=== PATIENT | female | born 1965 | race Hispanic/Latino ===

== ENCOUNTER 2021-05-16 10:17 | Outpatient (CLI) | payer OTHER, SELFPAY ==
--- NOTE | ~2021-05-16 | MM_ITS ---
EXAMINATION: MM screening john BI w [facility] HISTORY: Screening TECHNIQUE: Craniocaudal and mediolateral oblique 3-D tomosynthesis images were obtained and synthetic 2-D images were generated. CAD analysis was submitted and interpreted. COMPARISON: Comparison to multiple prior studies sequentially, with oldest reviewed study dated 01/2013. BREAST PARENCHYMAL COMPOSITION: The breasts are almost entirely fatty. FINDINGS: There is no evidence of suspicious mass, calcification, or architectural distortion to sugg est malignancy in either breast. There has been no suspicious interval change. IMPRESSION: 1. No mammographic evidence of malignancy. 2. Recommend routine screening mammography in one year. BI-RADS Category 1: Negative Reviewed, dictated and finalized at location A.
== END 2021-05-16 10:18 | disposition home or self-care (01) ==
LOC: ANHIMG 10:22
PROVIDERS: PCP Physician Assistant; Visit Provider Physician Assistant
DX: Z12.31 Encounter for screening mammogram for malignant neoplasm of breast (principal)
CPT/HCPCS: 77063; 77067

== ENCOUNTER 2022-05-31 09:18 | Outpatient (CLI) | payer MEDICAID, SELFPAY ==
--- NOTE | ~2022-05-31 | XR_ITS ---
EXAMINATION: XR chest 2V 05/31/2022 09:47 INDICATION: Angina pectoris PROCEDURE: 2 view chest COMPARISON: No prior studies for comparison. FINDINGS: The lungs are clear. The cardiomediastinal silhouette is within normal limits. There are no pleural effusions. There is no pneumothorax suspected. IMPRESSION: 1: NO ACUTE CARDIOPULMONARY DISEASE. Reviewed, dictated and finalized at location A.
== END 2022-05-31 09:19 | disposition home or self-care (01) ==
LOC: ANHIMG 09:26
PROVIDERS: PCP Physician Assistant; Visit Provider Physician Assistant
DX: I20.9 Angina pectoris, unspecified (principal)
CPT/HCPCS: 71046

== ENCOUNTER 2022-10-04 10:15 | Outpatient (CLI) | payer MEDICAID, SELFPAY ==
--- NOTE | ~2022-10-04 | MM_ITS ---
EXAMINATION: MM screening john BI w [facility] HISTORY: Screening mammogram TECHNIQUE: Craniocaudal and mediolateral oblique 3-D tomosynthesis images were obtained and synthetic 2-D images were generated. CAD analysis was submitted and interpreted. COMPARISON: , 01/15/2019, 02/21/2017 bilateral screening mammogram examinations BREAST PARENCHYMAL COMPOSITION: The breasts are almost entirely fatty. FINDINGS: There is no evidence of suspicious mass, calcification, or architectural distortion to sugg est malignancy in either breast. There has been no suspicious interval change. IMPRESSION: 1. No mammographic evidence of malignancy. 2. Recommend routine screening mammography in one year. BI-RADS Category 1: Negative Reviewed, dictated and finalized at location A. RAL OPERATOR
== END 2022-10-04 10:16 | disposition home or self-care (01) ==
LOC: ANHIMG 10:19
PROVIDERS: PCP Physician Assistant; Visit Provider Physician Assistant
DX: Z12.31 Encounter for screening mammogram for malignant neoplasm of breast (principal)
CPT/HCPCS: 77063; 77067

== ENCOUNTER 2024-02-25 23:41 | Emergency (ER) | payer OTHER, SELFPAY ==
--- NOTE | ~2024-02-25 | XR_ITS ---
Portable chest x-ray Comparison: 05/31/2022 Clinical History: Syncope Findings: Lungs are clear, without focal consolidation or pleural effusion. Cardiomediastinal silho uette is stable. Bones and soft tissues are unremarkable. Impression: Clear lungs. Reviewed, dictated and finalized at location . Impression: Clear lungs.
--- NOTE | ~2024-02-25 | CT_ITS ---
Clinical Indication: Syncope, hypotension CT Scan of the Chest, Abdomen, and Pelvis with Contrast: Technique: Contiguous sections were acquired throughout the chest, abdomen, and pelvis after intraven ous administration of 100 cc of Omnipaque 350. Dose reduction technique was used on this scan by farida salas automated exposure control and iterative reconstruction technique. The dose-length product (DL P) was 1150.54 mGy-cm. Findings: There is no evidence of any significant mediastinal, hilar or axillary lymphadenopathy. The mediastin al soft tissues appear normal. No aortic aneurysm or dissection seen. No central pulmonary embolus se en. Small hiatal hernia noted. There is no evidence of pleural or pericardial effusion. The lungs are clear. No pulmonary nodules or infiltrates are noted. The liver, spleen, pancreas, gallbladder, adrenals and kidneys are within normal limits. No evidence of aortic aneurysm. No lymphadenopathy. No bowel obstruction or bowel wall thickening. There is no evidence to suggest acute appendicitis. Urinary bladder is unremarkable. No pelvic mass seen. No ascites. Impression: No acute abnormality. Small hiatal hernia. Reviewed, dictated and finalized at [facility]. Impression: No acute abnormality. Small hiatal hernia.
--- NOTE | 2024-02-25 23:45 | PC.NURSE ---
2335 STEMI O/H 2336 Sophia sent 2337 On-Call Care Services Manager notified 2340 Rico called for standby
[2024-02-25 23:46] VITALS: BP 82/41; PULSE 66; RESP 22; TEMP 36.2; O2SAT 100
[2024-02-26] VITALS (9 sets, daily range): BP systolic 91–107; BP diastolic 33–66; PULSE 62–73; RESP 13–18; O2SAT 96–100
--- NOTE | 2024-02-26 | ECG_ITS ---
SEE SCANNED COPY FOR CONFIRMED REPORT MTDD
--- NOTE | 2024-02-26 00:01 | PC.NURSE ---
EDP Dr. Abigail BAZZI 4mg IV zofran.
[2024-02-26] MEDS: SODIUM CHLORIDE 0.9% IV 1,000 ML 999 ML IV CONT ×2 (00:02→00:33)
[2024-02-26] MEDS: ONDANSETRON INJ 4 MG/2 ML VIAL IV PUSH (00:03)
[2024-02-26 00:18] LABS: Basophils Absolute Auto 0.1 K/mm3 (0.0-0.1); Basophils Percent Auto 0.6 % (0.2-1.2); Eosinophils Absolute Auto 0.2 K/mm3 (0-0.3); Eosinophils Percent Auto 1.7 % (0-4.4); Hematocrit 46.9 % (37.0-47.0); Hemoglobin 15.1 g/dL (12.0-15.0); Immature Granulocyte Absolute 0.02 K/mm3 (0.00-0.031); Immature Granulocyte Percent A 0.2 % (0-0.5); Lymphocytes Absolute Auto 4.56 K/mm3 (0.9-3.2); Lymphocytes Percent Auto 50.8 % (18.3-44.2); Mean Corpuscular HGB Conc 32.2 g/dl (32-36); Mean Corpuscular Hemoglobin 29.5 pg (26-34); Mean Corpuscular Volume 91.8 fl (80-100); Mean Platelet Volume 10.2 fl (7.4-10.4); Monocytes Absolute Auto 0.5 K/mm3 (0.1-0.6); Monocytes Percent Auto 5.7 % (2.6-8.5); Neutrophils Absolute Auto 3.7 K/mm3 (1.3-6.7); Platelet Count Result 258 k/mm3 (150-375); Red Blood Count 5.11 M/mm3 (4.2-5.4); Red Cell Distribution Width 13.7 % (11.5-14.5)
--- NOTE | 2024-02-26 00:25 | ED.DIZZY ---
HPI - Dizziness General Chief Complaint: Syncope Stated Complaint: STEMI CALLED IN FIELD Time Seen by Provider: 02/25/24 23:44 History of Present Illness HPI Narrative: Patient is a 58-year-old female who presents to the emergency department this evening after syncopal episode that occurred at home. Patient is currently doing a colonoscopy prep. The patient is Slovak-speaking and supervisor ore dressing services were used to obtain HPI. Patient's son is present with patient at bedside. Patient did not fall or hit her head during the syncopal episode. She is currently complaining of back pain but denies any additional symptoms including chest pain. EKG performed by EMS prior to patient's arrival was concerning for possible ST elevations in the inferior leads, however, upon arrival, patient's EKG revealed early repolarization, no evidence of an acute STEMI. Patient is currently denying any chest pain and has not had any chest pain earlier today. Upon arrival, patient was noted to be hypotensive with a systolic blood pressure in 80s. No additional symptoms or concerns at this time. Related Data Home Medications Medication Instructions Recorded Confirmed Glp-1 Agonists 02/15/24 Allergies Allergy/AdvReac Type Severity Reaction Status Date / Time No Known Allergies Allergy Verified 02/26/24 00:01 Review of Systems Review of Systems: All systems are reviewed and are negative unless stated otherwise in the HPI. [facility] Social History Social History Living arrangements: with family Spiritual care concerns: No Exam Narrative: General: Alert, awake, afebrile, pale. HEENT: PERRL, no rhinorrhea, no post nasal drip, oropharynx clear. Neck: Trachea midline, no JVD, no lymphadenopathy. Cardiovascular: Regular rate and rhythm, no murmurs, rubs or gallops, no peripheral edema. Respiratory: Clear to auscultation bilaterally, no tachypnea, no wheezing, no rhonchi, no rubs, no respiratory distress. Abdomen: Soft, nontender, nondistended, no rebound, no guarding, no peritoneal signs. Musculoskeletal: No joint swelling or deformity, normal muscle tone. Skin: No rashes or petechia, no signs of infection. Psychiatric: Alert and oriented, normal behavior and judgment for situation. Neurological: Alert and oriented to person, place, and time. Follows all commands. No focal deficits, speech is clear and fluent. Course Vital Signs Vital signs: Vital Signs Temperature 97.2 F L 02/25/24 23:46 Pulse Rate 66 02/25/24 23:46 Respiratory Rate 22 H 02/25/24 23:46 Blood Pressure 82/41 L 02/25/24 23:46 Pulse Oximetry 100 02/25/24 23:46 Oxygen Delivery Room Air 02/25/24 23:46 Temperature 97.2 F L 02/25/24 23:46 Pulse Rate 72 02/26/24 05:03 Respiratory Rate 18 02/26/24 05:03 Blood Pressure 103/66 02/26/24 05:03 Pulse Oximetry 97 02/26/24 05:03 Oxygen Delivery Room Air 02/26/24 00:05 MDM - Dizziness MDM Narrative Medical decision making narrative: The patient was evaluated by myself in the emergency department. History is obtained from patient who is an independent historian and physical exam was performed. External medical records were reviewed at this time. IV was established and pertinent tests were ordered. Patient was administered 1 L IV fluid bolus by EMS. Patient was administered an additional 2 L IV fluid bolus with normal saline. EKG was obtained which revealed sinus rhythm at a rate of 69 beats per minute with ST elevations noted in the inferior leads consistent with early repolarization. No evidence of acute ischemia. EKG was independently interpreted by me and is currently pending official cardiology read. EKG was discussed with the on-call packing line operator, Dr. Alexander as this was initially called as an inferior STEMI prior to patient's arrival. He does agree with me that this is not a STEMI. Laboratory results obtained reveali
[2024-02-26 00:26] LABS: Alanine Aminotransferase 21 U/L (6-35); Albumin Level 4.7 g/dL (3.5-5.1); Alkaline Phosphatase 90 U/L (38-126); Anion Gap 9 mmol/L (4-12); Aspartate Amino Transferase 28 U/L (14-36); Bilirubin,Total 0.6 mg/dL (0.2-1.3); Blood Urea Nitrogen 12 mg/dL (7-17); Calcium 9.8 mg/dL (8.4-10.2); Carbon Dioxide 26 mmol/L (22-30); Chloride 105 mmol/L (98-107); Estimated CRCL calculation 76 ml/min; Estimated Glomerular Filt Rate > 60; Glucose 120 mg/dL (65-110); Magnesium 2.1 mg/dL (1.6-2.3); Potassium 3.3 mmol/L (3.4-5.0); Sodium 140 mmol/L (137-145)
[2024-02-26 00:34] LABS: Lactic Acid Reflex 1.7 mmol/L (0.7-2.0)
[2024-02-26 00:35] LABS: NT Pro B Type Natriuretic Pept 96 pg/mL (19.9-100)
[2024-02-26 00:38] LABS: Troponin I < 0.012 ng/mL (0.000-0.034)
[2024-02-26 01:47] LABS: Appearance Urine Turbid (Clear); Bacteria Urine 4+ /hpf; Bilirubin Urine 1+ (Negative); Blood Urine 3+ (Negative); Color Urine Dark Yellow (Yellow); Glucose Urine UA Negative (Negative); Ketones Urine Negative (Negative); Leukocyte Esterase Ur 3+ LEU/UL (Negative); Need Manual Microscopic Reviewed; Nitrate Urine Negative (Negative); Protein Urine 2+ mg/dL (Negative); RBC Urine 0-2 /hpf (0-2); Squamous Epithelial Cell Urine Occasional /hpf (Few); Urobilinogen Urine 0.2 mg/dL (<2.0); WBC Urine 21-50 /hpf (0-3); pH Urine >=9.0 (5.0-9.0)
[2024-02-26 01:54] LABS: Add Urine Microscopic? YES
== END 2024-02-26 05:04 | disposition home or self-care (01) ==
PROVIDERS: Emergency Provider Emergency Medicine; PCP Physician Assistant
DX: N39.0 Urinary tract infection, site not specified (principal); R55 Syncope and collapse; R94.31 Abnormal electrocardiogram [ECG] [EKG]
CPT/HCPCS: 36415; 71045; 71275; 74174; 80053; 81001; 83605; 83735; 83880; 84484; 85025; 87086; 87088; 93005; 96361; 96374; 99284; J2405; J7030; Q9967

== ENCOUNTER 2024-07-02 13:44 | Outpatient (CLI) | payer OTHER, SELFPAY ==
--- NOTE | ~2024-07-02 | MM_ITS ---
EXAMINATION: MM screening john BI w [place] HISTORY: Screening TECHNIQUE: Craniocaudal and mediolateral oblique 3-D tomosynthesis images were obtained and synthetic 2-D images were generated. CAD analysis was submitted and interpreted. COMPARISON: Comparison to multiple prior studies sequentially, with oldest reviewed study dated 05/2016. BREAST PARENCHYMAL COMPOSITION: Not Dense: The breasts are almost entirely fatty. FINDINGS: There is no evidence of suspicious mass, calcification, or architectural distortion to sugg est malignancy in either breast. There has been no suspicious interval change. IMPRESSION: 1. No mammographic evidence of malignancy. 2. Recommend routine screening mammography in one year. BI-RADS Category 1: Negative Reviewed, dictated and finalized at location B.
== END 2024-07-02 13:45 | disposition home or self-care (01) ==
LOC: ANHIMG 13:47
PROVIDERS: PCP Physician Assistant; Visit Provider Physician Assistant
DX: Z12.31 Encounter for screening mammogram for malignant neoplasm of breast (principal)
CPT/HCPCS: 77063; 77067

== ENCOUNTER 2025-09-08 15:10 | Outpatient (CLI) | payer OTHER, SELFPAY ==
--- NOTE | ~2025-09-08 | MM_ITS ---
EXAMINATION: MM screening john BI w [place] HISTORY: Screening. TECHNIQUE: Craniocaudal and mediolateral oblique 3-D tomosynthesis images were obtained and synthetic 2-D images were generated. CAD analysis was submitted and interpreted. COMPARISON: 2023, 2021, and 2020 BREAST PARENCHYMAL COMPOSITION: Not Dense: The breasts are almost entirely fatty FINDINGS: No suspicious masses are seen. There are no suspicious calcifications. No unexplained architectural distortion is seen. There are no skin or nipple abnormalities identified. There is no adenopathy seen on the images submitted. IMPRESSION: No mammographic evidence to suggest malignancy is seen. The patient may return to screening mammography as per ACR guidelines. BI-RADS 1 - Negative. Reviewed, dictated and finalized at location B. UCT LEAD
== END 2025-09-08 15:11 | disposition home or self-care (01) ==
LOC: ANHFOHIMG 15:11
PROVIDERS: PCP Physician Assistant; Visit Provider Physician Assistant
DX: Z12.31 Encounter for screening mammogram for malignant neoplasm of breast (principal)
CPT/HCPCS: 77063; 77067